=== PATIENT | female | born 1980 | race Caucasian/White ===

== ENCOUNTER → 2016-07-07 | Outpatient (CLI) | payer OTHER ==
[~2016-07-07] VITALS: Ht 167.6 cm; Wt 66.0 kg
[2016-07-07 12:35] VITALS: BP 133/90; PULSE 66; Ht 167.6 cm; Wt 66.0 kg
== END | disposition home or self-care (01) ==
LOC: C.NEUR 12:10
PROVIDERS: ATTEND Internal Medicine Pulmonary Disease
DX: G47.21 Circadian rhythm sleep disorder, delayed sleep phase type (principal); G47.61 Periodic limb movement disorder; G25.81 Restless legs syndrome; G47.00 Insomnia, unspecified; G47.33 Obstructive sleep apnea (adult) (pediatric)

== ENCOUNTER → 2016-12-01 | Outpatient (CLI) | payer OTHER | END | disposition home or self-care (01) | LOC: C.PATHSPEC 16:36 | PROVIDERS: ATTEND Dermatology | DX: C43.59 Malignant melanoma of other part of trunk (principal) ==

== ENCOUNTER → 2016-12-16 | Outpatient (CLI) | payer OTHER | END | disposition home or self-care (01) | LOC: C.PATHSPEC 11:43 | PROVIDERS: ATTEND Plastic Surgery | DX: D22.9 Melanocytic nevi, unspecified (principal) ==

== ENCOUNTER → 2016-12-22 | Outpatient (CLI) | payer OTHER ==
[2016-12-22 18:02] LABS: ALT/SGPT 18 U/L (12-78); BLOOD UREA NITROGEN 16 mg/dl (7-18); BUN/CREATININE RATIO 18.9 (10-20); CALCIUM 9.2 mg/dl (8.5-10.1); CARBON DIOXIDE 25 mmol/L (21-32); CHLORIDE 107 mmol/L (98-107); CREATININE 0.87 mg/dl (0.60-1.20); GLUCOSE 76 mg/dl (70-99); POTASSIUM 4.4 mmol/L (3.5-5.1); SODIUM 138 mmol/L (136-145)
[2016-12-22 18:04] LABS: ALB/GLOB RATIO 1.1 (0.9-2); ALKALINE PHOSPHATASE 60 U/L (45-117); AST/SGOT 8 U/L (15-37); BASO % 0.4 %; BASO ABS # 0.03 K/uL (0-0.2); COMPLETE YES; EOS % 2.5 %; HEMATOCRIT 44.7 % (37-47); IG% 0.3 %; LYMPH % 25.1 %; LYMPH ABS # 1.74 K/uL (1.2-3.4); MEAN CELL VOLUME 94.3 fL (80-100); MEAN CORPUSCULAR HEMOGLOBIN 31.2 pg (25-34); MEAN CORPUSCULAR HGB CONC 33.1 g/dl (32-36); MEAN PLATELET VOLUME 9.7 fL (7.4-10.4); MONO % 8.1 %; NEUT % 63.6 %; PLATELET COUNT 317 K/uL (130-400); RED BLOOD COUNT 4.74 M/uL (4.2-5.4); WHITE BLOOD COUNT 6.92 K/uL (4.8-10.8)
== END ==
LOC: C.LAB1850 16:33
PROVIDERS: ATTEND Dermatology
DX: C43.9 Malignant melanoma of skin, unspecified (principal)

== ENCOUNTER → 2016-12-22 | Outpatient (CLI) | payer OTHER ==
--- NOTE | 2016-12-22 17:51 | DIAGNOSTIC IMAGING REPORT ---
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 Lungs are clear. No significant nodular pathology. IMPRESSION: Normal exam Electronically signed by: Chon Fairbanks M.D. 12/22/2016 5:50 PM Dictated Date/Time: 12/22/2016 5:49 PM
== END | disposition home or self-care (01) ==
LOC: C.RAD 17:19
PROVIDERS: ATTEND Dermatology
DX: C43.9 Malignant melanoma of skin, unspecified (principal)

== ENCOUNTER → 2017-03-26 | Outpatient (CLI) | payer OTHER ==
[~2017-03-26] VITALS: Ht 162.6 cm; Wt 67.7 kg
[2017-03-26 15:38] VITALS: BP 113/80; PULSE 84; Ht 162.6 cm; Wt 67.7 kg
== END | disposition home or self-care (01) ==
LOC: C.NEUR 15:11
PROVIDERS: ATTEND Internal Medicine Pulmonary Disease
DX: G47.21 Circadian rhythm sleep disorder, delayed sleep phase type (principal); G47.00 Insomnia, unspecified

== ENCOUNTER → 2017-03-29 | Outpatient (CLI) | payer OTHER | END | disposition home or self-care (01) | LOC: C.PAPS 08:15 | PROVIDERS: ATTEND Physician Assistant | DX: Z12.4 Encounter for screening for malignant neoplasm of cervix (principal) ==

== ENCOUNTER → 2017-04-15 | Outpatient (CLI) | payer OTHER | END | disposition home or self-care (01) | LOC: C.PATHSPEC 17:08 | PROVIDERS: ATTEND Plastic Surgery | DX: D22.5 Melanocytic nevi of trunk (principal); D22.61 Melanocytic nevi of right upper limb, including shoulder; D22.62 Melanocytic nevi of left upper limb, including shoulder ==

== ENCOUNTER → 2017-05-26 | Outpatient (CLI) | payer OTHER | END | disposition home or self-care (01) | LOC: C.PATHSPEC 17:15 | PROVIDERS: ATTEND Plastic Surgery | DX: L81.4 Other melanin hyperpigmentation (principal); D23.71 Other benign neoplasm of skin of right lower limb, including hip; D22.61 Melanocytic nevi of right upper limb, including shoulder; D22.5 Melanocytic nevi of trunk ==

== ENCOUNTER → 2018-02-11 | Outpatient (CLI) | payer OTHER ==
[~2018-02-11] VITALS: Ht 170.2 cm; Wt 64.5 kg
[2018-02-11 13:59] VITALS: BP 101/70; PULSE 94; Ht 170.2 cm; Wt 64.5 kg
== END | disposition home or self-care (01) ==
LOC: C.NEUR 13:41
PROVIDERS: ATTEND Internal Medicine Pulmonary Disease
DX: G47.21 Circadian rhythm sleep disorder, delayed sleep phase type (principal); G47.00 Insomnia, unspecified